=== PATIENT | female | born 1975 | race Caucasian/White ===

== ENCOUNTER 2018-01-12 14:02 | Outpatient (CLI) | payer OTHER ==
[~2018-01-12 14:02] MED LIST: KETO10TA2 PO
== END 2018-01-12 14:13 | disposition home or self-care (01) ==
LOC: LAB 14:02
DX: N80.8 Other endometriosis (principal); Z13.1 Encounter for screening for diabetes mellitus; R03.0 Elevated blood-pressure reading, without diagnosis of hypertension; Z12.11 Encounter for screening for malignant neoplasm of colon; J32.8 Other chronic sinusitis

== ENCOUNTER 2018-04-08 10:41 | Outpatient (CLI) | payer OTHER | END 2018-04-08 10:50 | disposition home or self-care (01) | LOC: LAB 10:41 | DX: J11.1 Influenza due to unidentified influenza virus with other respiratory manifestations (principal) ==

== ENCOUNTER → 2019-06-13 14:52 | Outpatient (CLI) | payer OTHER | END | disposition home or self-care (01) | LOC: LAB 14:52 | DX: J11.1 Influenza due to unidentified influenza virus with other respiratory manifestations (principal); R05 Cough; J32.8 Other chronic sinusitis ==

== ENCOUNTER → 2020-01-12 16:43 | Outpatient (CLI) | payer OTHER | END | disposition home or self-care (01) | LOC: LAB 16:43 | PROVIDERS: ATTEND Pediatrics Neonatal-Perinatal Medicine | DX: D64.89 Other specified anemias (principal) ==

== ENCOUNTER → 2020-01-24 07:00 | Outpatient (CLI) | payer OTHER | END | disposition home or self-care (01) | LOC: PPH VACUNA 07:00 | DX: Z23 Encounter for immunization (principal) ==

== ENCOUNTER 2020-02-08 16:07 | Outpatient (CLI) | payer OTHER | END 2020-02-08 16:17 | disposition home or self-care (01) | LOC: LAB 16:07 | PROVIDERS: ATTEND Pediatrics Neonatal-Perinatal Medicine | DX: N39.0 Urinary tract infection, site not specified (principal) ==